=== PATIENT | male | born 1980 | race Hispanic/Latino ===

== ENCOUNTER 2018-07-05 10:26 | Emergency (ER) | payer BC ==
[~2018-07-05] VITALS: Ht 175.3 cm; Wt 102.1 kg
[2018-07-05] MEDS ORDERED: ONDANSETRON HCL INJ 2 MG/ML VIAL IV STA (10:42)
[2018-07-05] MEDS ORDERED: MORPHINE SULFATE 2 MG/ML SYR IV STA (10:42)
[2018-07-05] MEDS ORDERED: SODIUM CHLORIDE 0.9% 1000ML 1,000 ML IV SCH (10:45)
[2018-07-05 10:55] LABS: BASOPHILS % 0.4 % (0.0-1.0); EOSINOPHILS # (AUTO) 0.2 (0.0-0.4); EOSINOPHILS % 1.6 % (0.0-6.0); HEMATOCRIT 42.5 % (38.2-49.6); HEMOGLOBIN 14.5 g/dL (14.0-18.0); LYMPHOCYTES # (AUTO) 2.5 (1.0-3.2); LYMPHOCYTES % 26.6 % (18.0-39.1); MEAN CORPUSCULAR HEMOGLOBIN 29.2 pg (28-32); MEAN CORPUSCULAR HGB CONC 34.1 g/dL (31-35); MEAN CORPUSCULAR VOLUME 85.7 fL (81-99); MONOCYTES # (AUTO) 0.9 (0.2-0.8); MONOCYTES % 9.1 % (4.4-11.3); NEUTROPHILS # (AUTO) 5.7 (2.1-6.9); NEUTROPHILS % 61.5 % (38.7-80.0); PLATELET COUNT 266 x10e3/uL (140-360); RED BLOOD COUNT 4.96 x10e6/uL (4.3-5.7)
[2018-07-05 11:01] LABS: BILIRUBIN,URINE NEGATIVE (NEGATIVE); CLARITY,URINE HAZY (CLEAR); COLOR,URINE YELLOW (YELLOW); KETONES,URINE NEGATIVE (NEGATIVE); LEUKOCYTE ESTERASE ,URINE NEGATIVE (NEGATIVE); NITRITE,URINE NEGATIVE (NEGATIVE); PROTEIN,URINE DIPSTICK NEGATIVE (NEGATIVE); URINE UROBILINOGEN 0.2 mg/dL (0.2 - 1)
[2018-07-05 11:05] LABS: BACTERIA,URINE RARE /HPF; EPITHELIAL CELLS,URINE RARE /LPF; RBC,URINE 0-5 /HPF (0-5); WBC,URINE (MAN) 0-5 /HPF (0-5)
[2018-07-05 11:13] LABS: ALANINE AMINOTRANSFERASE 34 IU/L (0-55); ALBUMIN/GLOBULIN RATIO 1.1 (0.8-2.0); ALKALINE PHOSPHATASE 74 IU/L (40-150); BLOOD UREA NITROGEN 9 mg/dL (7-26); BUN/CREATININE RATIO 12 (6-25); CALCIUM 9.2 mg/dL (8.4-10.2); CARBON DIOXIDE 21 mmol/L (22-29); CHLORIDE 106 mmol/L (98-107); CREATININE, SERUM 0.76 mg/dL (0.72-1.25); EST GLOMERULAR FILTRATION RATE > 60 ML/MIN (60-); GLUCOSE 97 mg/dL (74-118); LIPASE 11 U/L (8-78); SODIUM 137 mmol/L (136-145)
--- NOTE | 2018-07-05 11:59 | Diagnostic Imaging Report ---
EXAM: CT Abdomen and Pelvis WITH contrast INDICATION: \S\right side abd pain COMPARISON: None. TECHNIQUE: Abdomen and pelvis were scanned utilizing a multidetector helical scanner from the lung base to the pubic symphysis after administration of IV contrast. Coronal and sagittal reformations were obtained. Dose modulation, iterative reconstruction, and/or weight based adjustment of the mA/kV was utilized to reduce the radiation dose to as low as reasonably achievable. Routine protocol was performed. Scan was performed when during portal venous phase. IV CONTRAST: 100 mL of Isovue-370 ORAL CONTRAST: Water COMPLICATIONS: None RADIATION DOSE: Total DLP: 846.99 mGy*cm Estimated effective dose: (DLP x 0.015 x size factor) mSv CTDIvol has been reviewed. It is below the limits set by the Radiation Protocol Committee (RPC). FINDINGS: LINES and TUBES: None. LOWER THORAX: Right base atelectasis/scarring. Otherwise, unremarkable. HEPATOBILIARY: Hepatic steatosis. No focal hepatic lesions. No biliary ductal dilation. GALLBLADDER: No radio-opaque stones or sludge. No wall thickening. SPLEEN: No splenomegaly. PANCREAS: No focal masses or ductal dilatation. ADRENALS: No adrenal nodules KIDNEYS/URETERS: Kidneys enhance symmetrically. No hydronephrosis. No cystic or solid mass lesions. No stones. GI TRACT: No abnormal distention, wall thickening, or evidence of bowel obstruction. Fat density ovoid structure adjacent to the proximal ascending colon with surrounding mild inflammation, measuring 1.5 x 5 cm (series 2, image 47). Appendix is normal. PELVIC ORGANS/BLADDER: Unremarkable. LYMPH NODES: No lymphadenopathy. VESSELS: Unremarkable. PERITONEUM / RETROPERITONEUM: No free air or fluid. BONES: Unremarkable. SOFT TISSUES: Unremarkable. IMPRESSION: 1. Fat density lesion with surrounding inflammation adjacent to the ascending colon, representing Epiploic appendagitis. 2. Normal appendix. Signed by: Dr. Iron Eckert MD on 07/05/2018 11:56 AM
[2018-07-05] MEDS ORDERED: SODIUM CHLORIDE 0.9% 50ML 50 ML ONE (17:38)
[2018-07-05] MEDS ORDERED: IOPAMIDOL 370 MG/ML 200 ML INFUS..BTL INJ ONE (17:38)
--- OUTSIDE RECORDS SUMMARY | 2018-07-08 13:42 | XMS REPORT ---
[facility] Address Unknown Phone Unavailable Care Team Providers Care Kier Drier Name Role Phone Jaun CHANEL Unavailable Unavailable Hany ELI Unavailable Unavailable Problems This patient has no known problems. Allergies, Adverse Reactions, Alerts This patient has no known allergies or adverse reactions. Medications This patient has no known medications. Results Test Description Test Time Test Comments Text Results Atomic Results Result Comments CT ABDOMEN/PELVIS W 2018-07-05 11:49:00 [place] [address] Patient Name: RADHIKA CALDERON MR #: [id number] : 1980 Age/Sex: 38/M Req #: [id number] Adm Physician: Ordered by: NARDA CHANEL MD Report #: [id number] Location: ER Room/Bed: Procedure: [id number] CT/CT ABDOMEN/PELVIS W Exam Date: Exam Time: REPORT STATUS: Signed EXAM: CT Abdomen and Pelvis WITH contrast INDICATION: COMPARISON: None. TECHNIQUE: Abdomen and pelvis were scanned utilizing a multidetector helical scanner from the lung base to the pubic symphysis after administration of IV contrast. Coronal and sagittal reformations were obtained. Dose modulation, iterative reconstruction, and/or weight based adjustment of the mA/kV was utilized to reduce the radiation dose to as low as reasonably achievable. Routine protocol was performed. Scan was performed when during portal venous phase. IV CONTRAST: 100 mL of Isovue-370 ORAL CONTRAST: Water COMPLICATIONS: None RADIATION DOSE: Total DLP: 846.99 mGy*cm Estimated effective dose: (DLP x 0.015 x size factor) mSv CTDIvol has been reviewed. It is below the limits set by the Radiation Protocol Committee (RPC). FINDINGS: LINES and TUBES: None. LOWER THORAX: Right base atelectasis/scarring. Otherwise, unremarkable. HEPATOBILIARY: Hepatic steatosis. No focal hepatic lesions. No biliary ductal dilation. GALLBLADDER: No radio-opaque stones or sludge. No wall thickening. SPLEEN: No splenomegaly. PANCREAS: No focal masses or du ctal dilatation. ADRENALS: No adrenal nodules KIDNEYS/URETERS: Kidneys enhance symmetrically. No hydronephrosis. No cystic or solid mass lesions. No stones. GI TRACT: No abnormal distention, wall thickening, or evidence of bowel obstruction. Fat density ovoid structure adjacent to the proximal ascending colon with surrounding mild inflammation, measuring 1.5 x 5 cm (series 2, image 47). Appendix is normal. PELVIC ORGANS/BLADDER: Unremarkable. LYMPH NODES: No lymphadenopathy. VESSELS: Unremarkable. PERITONEUM / RETROPERITONEUM: No free air or fluid. BONES: Unremarkable. SOFT TISSUES: Unremarkable. IMPRESSION: 1. Fat density lesion with surrounding inflammation adjacent to the ascending colon, representing Epiploic appendagitis. 2. Normal appendix. Signed by: Dr. Iron Martinez MD on 07/05/2018 11:56 AM Dictated By: IRON MARTINEZ MD 1156 Transcr ibed By: YONI on 07/05/18 1156 COPY TO: NARDA CHANEL MD TISSUE EXAM 2018-06-18 12:41:00 Surgical Pathology Report Case: [id number] Authorizing Provider: Alec Eli MD Collected: 06/16/2018 0805 Ord ering Location: [facility] Received: 06/16/2018 1216 Pathologist: Ronen Nicholas MD Specimens: A) - Polyp, Colon - Right/Ascending, cold snare B) - Polyp, Colon - Rectum, biopsy C) - Rectal, biopsy, dx-rectal erythema A. ASCENDING COLON, POLYP, BIOPSY:- TUBULAR ADENOMAB. RECTUM, POLYP, BIOPSY:- HYPERPLASTIC POLYPC. RECTUM, BIOPSY:- COLONIC MUCOSA WITHOUT SIGNIFICANT PATHOLOGIC CHANGE - NEGATIVE FOR FEATURES OF MICROSCOPIC COLITIS (LYMPHOCYTIC OR COLLAGENOUS), ACTIVE INFLAMMATION, DYSPLASIA, AND MALIGNANCY Signing Pathologist Direct Phone Line: [phone] signed by Ronen Nicholas MD on 06/18/2018 at 12:41 [id number] paperwork, containers, and cassettes are all labeled [id number].The specimen is received in formalin in 3 containers labeled with the patient's name (KVNG) and medical record number.A. The specimen labeled "polyp, colon-right/ascending" consists of 2 fragments of geronimo-white tissue measuring 0.1-0.3 cm in greatest dimension. The specimen is entirely submitted in a single cassette labeled A1.B. The specimen labeled "polyp, colon-rectum" consists of 2 fragments of geronimo-white tissue measur ing 0.1-0.3 cm in greatest dimension. The specimen is entirely submitted in a single cassette labeled B1.C. The specimen labeled "rectal" consists of 2 fragments of geronimo-white tissue measuring 0.2-0.3 cm in greatest dimension. The specimen is entirely submitted in a single cassette labeled C1.Microscopic examination is performed and is incorporated in the diagnostic line.[facility], Department of Pathology, [place] [address], [facility], Department of Pathology, [address] [place] [id number], [facility], Department of Pathology, [address] [place] [address],
--- OUTSIDE RECORDS SUMMARY | 2018-07-08 13:42 | XMS REPORT | Clinical Summary ---
Author Author [facility] Address Unknown Phone Unavailable Care Team Providers Care Furniture Dipper Name Role Phone PCP Unavailable Allergies No Known Allergies Current Medications Prescription Sig. Disp. Refills Start End Date Status Date multivitamin per tablet Take 1 tablet by mouth Active daily. Active Problems Problem Noted Date Rectal bleeding 03/07/2016 Encounters Date Type Specialty Care Team Description 06/16/2018 Hospital Alec Rosales MD History of colon polyps Encounter (Primary Dx) 06/16/2018 Anesthesia Emily Miller Event MD [place] 06/16/2018 Procedure Pass 06/16/2018 Surgery Alec Rosales MD COLONOSCOPY,POLYPECTOMY after 07/04/2017 Family History Medical History Relation Name Comments Liver disease Father Colon cancer Mother Relation Name Status Comments Father Mother Social History Tobacco Use Types Packs/Day Years Used Date Never Smoker Smokeless Tobacco: Never Used Alcohol Use Drinks/Week oz/Week Comments No Sex Assigned at Date Recorded Not on file Last Filed Vital Signs Vital Sign Reading Time Taken Blood Pressure 136/86 06/16/2018 8:40 AM CDT Pulse 73 06/16/2018 8:40 AM CDT Temperature 36.9 C (98.5 F) 06/16/2018 8:15 AM CDT Respiratory Rate 18 06/16/2018 8:40 AM CDT Oxygen Saturation 96% 06/16/2018 8:40 AM CDT Inhaled Oxygen - - Concentration Weight 102.1 kg (225 lb) 06/12/2018 8:36 AM CDT Height - - Body Mass Index 33.23 06/12/2018 8:36 AM CDT Plan of Treatment Not on file Procedures Procedure Name Priority Date/Time Associated Diagnosis Comments COLONOSCOPY,POLYPECTOMY 06/16/2018 Family history of colon 8:00 AM CDT cancer after 07/04/2017 Results * REPORT OF PROCEDURE - ENDOSCOPY URL (06/16/2018 8:13 AM) * Tissue Exam (06/16/2018 8:05 AM) Component Value Ref Range Case Report Surgical Pathology Report Case: [id number] Authorizing Provider:Alec Rosales MDCollected: 06/16/2018 0805 [facility] SERVICESReceived:0 06/16/2018 1216 Pathologist: Ronen Nicholas MD Specimens: A) - Polyp, Colon - Right/Ascending, cold snare B) - Polyp, Colon - Rectum, biopsy C) - Rectal, biopsy, dx-rectal erythema DIAGNOSIS A. ASCENDING COLON, POLYP, BIOPSY: - TUBULAR ADENOMA B. RECTUM, POLYP, BIOPSY: - HYPERPLASTIC POLYP C. RECTUM, BIOPSY: - COLONIC MUCOSA WITHOUT SIGNIFICANT PATHOLOGIC CHANGE - NEGATIVE FOR FEATURES OF MICROSCOPIC COLITIS (LYMPHOCYTIC OR COLLAGENOUS), ACTIVE INFLAMMATION, DYSPLASIA, AND MALIGNANCY Signing Pathologist Direct Phone Line: [phone] CPT Code(s) 95688 x3 GROSS DESCRIPTION The paperwork, containers, and cassettes are all labeled [id number]. The specimen is received in formalin in 3 containers labeled with the patient's name (KVNG) and medical record number. A. The specimen labeled "polyp, colon right/ascending" consists of 2 fragments of geronimo-white tissue measuring 0.1-0.3 cm in greatest dimension.The specimen is entirely submitted in a single cassette labeled A1. B. The specimen labeled "polyp, colon rectum" consists of 2 fragments of geronimo-white tissue measuring 0.1-0.3 cm in greatest dimension.The specimen is entirely submitted in a single cassette labeled B1. C. The specimen labeled "rectal" consists of 2 fragments of geronimo-white tissue measuring 0.2-0.3 cm in greatest dimension.The specimen is entirely submitted in a single cassette labeled C1. MICROSCOPIC DESCRIPTION Microscopic examination is performed and is incorporated in the diagnostic line. Gross assessment was [facility], Department of performed at Pathology, [address] [place] [address], Technical component was [facility], Department of performed at Pathology, [address] [place] [id number], Professional component [facility], Department of was performed at Pathology, [facility], [place] [address], Specimen Performing Laboratory Tissue - Polyp, Colon - [facility] Right/Ascending; Tissue - [facility] Polyp, Colon - Rectum; [place] [address] Tissue - Rectal after 07/04/2017
== END 2018-07-05 13:15 | disposition home or self-care (01) ==
LOC: ER 10:26
DX: R10.31 Right lower quadrant pain (principal); R19.7 Diarrhea, unspecified
CPT/HCPCS: 36415; 74177; 80053; 81001; 83690; 85025; 99284; J2270; J2405; J7030; Q9967